=== PATIENT | female | born 1960 | race Caucasian/White ===

== ENCOUNTER 2017-10-24 13:01 | Emergency (ER) | payer MEDICAID ==
[~2017-10-24] VITALS: Ht 5451.6 cm; Wt 80.3 kg
[~2017-10-24 13:01] MED LIST: MACROBID PO; NITR100C PO
[2017-10-24 13:57] VITALS: BP 146/99
[2017-10-24] MEDS ORDERED: CefTRIAXone 250MG IM Kit w/LIDOcaine IM ONE (17:50)
[2017-10-24] MEDS ORDERED: azithromycin 250mg tablet PO ONE (17:50)
[2017-10-24] MEDS ORDERED: METR500T4 PO (18:37)
== END 2017-10-24 18:54 | disposition home or self-care (01) ==
LOC: ER 13:02
DX: N76.0 Acute vaginitis (principal); I10 Essential (primary) hypertension; G89.29 Other chronic pain; Z88.5 Allergy status to narcotic agent; Z79.899 Other long term (current) drug therapy
CPT/HCPCS: 87210; 96372; 99284; J0696

== ENCOUNTER 2019-08-03 23:04 | Emergency (ER) | payer MEDICAID ==
[~2019-08-03] VITALS: Ht 165.1 cm; Wt 77.3 kg
[2019-08-03 23:08] VITALS: BP 189/112
[2019-08-03] MEDS ORDERED: azithromycin 250mg tablet PO ONE (23:25)
[2019-08-03] MEDS ORDERED: CefTRIAXone 250MG IM Kit w/LIDOcaine IM ONE (23:25)
[2019-08-03 23:41] LABS: CLARITY,URINE CLOUDY (Clear); COLOR,URINE YELLOW (Yellow); GLUCOSE, URINE NEGATIVE (Neg); KETONES,URINE NEGATIVE (Neg); LEUKOCYTE ESTERASE ,URINE NEGATIVE (Neg); NITRITES, URINE POSITIVE (Neg); OCCULT BLOOD,URINE TRACE-INTACT (Neg); PROTEIN,URINE 100 mg/dl (Neg); UROBILINOGEN,URINE 0.2 E.U/dL (0.2-1.0)
[2019-08-03 23:47] LABS: UA COLLECTION TYPE CLN CATCH MIDSTREAM
[2019-08-03 23:48] LABS: BACTERIA,URINE 3+ /HPF (Neg); CAL OXALATE CRYSTALS 2+ /HPF (NEGATIVE); SQUAMOUS EPITHELIAL CELL,UR FEW /LPF (FEW)
[2019-08-04] MEDS ORDERED: CEPH500C5 PO (00:10)
== END 2019-08-04 00:26 | disposition home or self-care (01) ==
LOC: ER 23:04
DX: N39.0 Urinary tract infection, site not specified (principal); Z20.2 Contact with and (suspected) exposure to infections with a predominantly sexual mode of transmission; N89.8 Other specified noninflammatory disorders of vagina; I10 Essential (primary) hypertension; G89.29 Other chronic pain; Z98.890 Other specified postprocedural states; Z88.5 Allergy status to narcotic agent; Z79.2 Long term (current) use of antibiotics; Z88.8 Allergy status to other drugs, medicaments and biological substances
CPT/HCPCS: 36415; 81001; 87077; 87088; 87186; 87491; 87591; 96372; 99283; J0696

== ENCOUNTER 2023-12-02 20:24 | Emergency (ER) | payer MEDICAID ==
[~2023-12-02] VITALS: Ht 166.4 cm; Wt 83.2 kg
[2023-12-02 20:27] VITALS: BP 160/101; PULSE 100; O2SAT 98
[2023-12-02] MEDS ORDERED: CEPH-585 PO (21:40)
[2023-12-02] MEDS ORDERED: SULF1TAB49 PO (21:40)
[2023-12-02] MEDS ORDERED: NAPR-56 PO (21:40)
[2023-12-02 21:53] VITALS: RESP 16; TEMP 98.1
== END 2023-12-02 21:55 | disposition home or self-care (01) ==
LOC: ER 20:25
DX: S50.861A Insect bite (nonvenomous) of right forearm, initial encounter (principal); L03.113 Cellulitis of right upper limb; I10 Essential (primary) hypertension; G89.29 Other chronic pain; M54.9 Dorsalgia, unspecified; Z98.890 Other specified postprocedural states; Z72.89 Other problems related to lifestyle; Z88.8 Allergy status to other drugs, medicaments and biological substances; Z79.899 Other long term (current) drug therapy; W57.XXXA Bitten or stung by nonvenomous insect and other nonvenomous arthropods, initial encounter; Y93.89 Activity, other specified; Y92.89 Other specified places as the place of occurrence of the external cause; Y99.8 Other external cause status
CPT/HCPCS: 99283